=== PATIENT | male | born 1935 | race Caucasian/White ===

== ENCOUNTER 2016-09-11 09:34 | Day surgery (SDC) | payer MEDICARE ==
[2016-09-11] MEDS ORDERED: LIDOCAINE HCL 10 APPL CARTRIDGE TP ONE (13:20)
--- NOTE | 2016-09-11 13:40 | OR ---
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 Started Flomax with minimal improvement. Also has a large left hydrocele. Ultrasound was obtained showing 500 mL residual no hydronephrosis. Cystoscopy indicated to assess for BPH and obstruction make sure nothing else going on. Description: Consent obtained. Placed in the supine position. Prepped and draped. Time-out taken . Scope inserted into the urethra and navigated to the bladder with ease. Bladder massively distended with some debris. Cannot clear entire bladder but no obvious tumors or stones. Very heavy trabeculation with multiple diverticula looks like he has some permanent damage. Could not find ureter secondary to debris. Bladder neck definitely high riding. Prostate is shorter with some distal bilobar hypertrophy. I think both prostate and bladder neck are contributing to the obstruction however he is diabetic so I do not know what component is detrusor failure. Washing was obtained sent for cytology and culture. Rest of urethra was normal. EBL: 0 Specimen: Washing for culture and cytology Condition: tolerate procedure Important Findings: Obstructed bladder likely related the bladder neck and prostate with some contribution from diabetes, evidence of permanent damage, likely pyuria. Very large left hydrocele. FOLLOW UP: He will follow-up next week for hydrocele aspiration as described in clinic note. I do believe he would benefit from TURP the only trouble as the diabetes complicates things. I am going to treat for infection, he will stay on Flomax. We'll see what effect treatment of presumed infection has.
[2016-09-11 14:09] LABS: Anion Gap 16.4 mmol/L (6.8-13.8); BUN/Creatinine Ratio 25.4 (9.0-21.6); Calcium * 9.1 mg/dL (7.9-10.9); Carbon Dioxide 25.7 mmol/L (24-32.6); Estimated Creat Clear 44.3; Potassium 4.1 mmol/L (3.4-4.6)
[2016-09-11] MEDS ORDERED: LEVOFLOXACIN 500 MG TABLET PO ONE (14:30)
[2016-09-11 14:50] VITALS: BP 149/75
== END 2016-09-11 09:35 | disposition home or self-care (01) ==
LOC: AMB 09:34 → MERGE 14:30
PROVIDERS: ATTEND Urology
PROC: 3E1K88X Irrigation of Genitourinary Tract using Irrigating Substance, Via Natural or Artificial Opening Endoscopic, Diagnostic (ICD-10-PCS; 2016-09-11)
PROC: 0TJB8ZZ Inspection of Bladder, Via Natural or Artificial Opening Endoscopic (ICD-10-PCS; principal; 2016-09-11 14:30)
DX: N40.1 Benign prostatic hyperplasia with lower urinary tract symptoms (principal); R32 Unspecified urinary incontinence; N13.8 Other obstructive and reflux uropathy; N32.89 Other specified disorders of bladder; N43.3 Hydrocele, unspecified; E11.9 Type 2 diabetes mellitus without complications; I10 Essential (primary) hypertension; E78.00 Pure hypercholesterolemia, unspecified; I25.10 Atherosclerotic heart disease of native coronary artery without angina pectoris; D63.8 Anemia in other chronic diseases classified elsewhere; Z87.891 Personal history of nicotine dependence; Z68.24 Body mass index [BMI] 24.0-24.9, adult